=== PATIENT | female | born 1970 | race Caucasian/White ===

== ENCOUNTER → 2023-05-29 | Outpatient (CLI) | payer OTHER, SELFPAY ==
[2023-05-29 17:51] LABS: Absolute Lymphocyte Count 1.86 X10^3/uL (0.83-4.51); Absolute Neutrophil Count 3.8 X10^3/uL (2.0-7.7); Basophil# 0.07 X10^3/uL; Basophil% 1.1 % (0-1); Eosinophil# 0.08 X10^3/uL; Eosinophils% 1.3 % (0-5); Hematocrit 40.7 % (37-47); Hemoglobin 13.1 g/dL (12.0-15.0); Lymphocyte # 1.86 X10^3/ul (0.83-4.51); Lymphocyte % 29.5 % (19-41); Mean Corp Hgb Conc 32.2 g/dL (32-36); Mean Corpuscular Hgb 28.7 pg (27.0-32.0); Mean Corpuscular Volume 89.1 fL (81-99); Mean Platelet Vol. 10.8 fl (6.2-12.0); Monocyte# 0.53 X10^3/uL; Monocyte% 8.4 % (0-10); NRBC Flagged by Analyzer 0 % (0-5); Neutrophil # 3.75 X10^3/uL (2.7-7.7); Neutrophil % 59.4 % (47-70); Platelet Count 290 K/mm3 (150-450); RBC Distribution Width CV 12.5 % (11.6-14.6); RBC Distribution Width SD 40.8 fl (35.1-43.9); Red Blood Count 4.57 M/mm3 (4.2-5.4); White Blood Count 6.3 K/mm3 (4.4-11.0)
[2023-05-29 18:28] LABS: ALB/GLOB Ratio 1.2 RATIO (0.9-2.4); AST(SGOT) 14 U/L (15-37); Alanine Aminotransfer ALT/SGPT 19 U/L (13-56); Alkaline Phosphatase 53 U/L (45-117); Anion Gap 5 (5-15); BUN 15 mg/dL (7-18); BUN/Creat Ratio 18.7 RATIO (10-20); Calcium,Total 9.4 mg/dL (8.5-10.1); Chloride 108 mmol/L (98-107); EST Glomerular Filtration Rate 80 mL/min (>60); Est Glom Filt Rate - Afr Amer 96 mL/min (>60); Globulin 3.3 g/dL (2.2-4.2); Glucose 93 mg/dL (74-106); Potassium 3.7 mmol/L (3.5-5.1); Protein, Total 7.3 g/dL (6.4-8.2); Sodium Level 142 mmol/L (136-145)
== END | disposition home or self-care (01) ==
LOC: MFPLAB 15:21
PROVIDERS: PCP Family Medicine; Visit Provider Family Medicine
DX: Z01.818 Encounter for other preprocedural examination (principal)
CPT/HCPCS: 36415; 80053; 85025

== ENCOUNTER 2023-06-23 05:51 | Day surgery (SDC) | payer OTHER, SELFPAY ==
[2023-06-23 06:43] VITALS: BP 114/66; PULSE 95; RESP 16; TEMP 36.6; O2SAT 100; BMI 19.5
[2023-06-23] MEDS: Lactated Ringers 1,000 ML 15 ML IV (07:03)
--- NOTE | 2023-06-23 07:30 | BUN_PTH ---
PATIENT: ARABELLA CLEMENS [place] [facility] [place] [facility] [place][id number] AGE/SX: 53/F ROOM: RE06/23/[address]: Dr. Luis Yuen DPM : 1970 BED: DIS: 06/23/2023 SPEC #: [id number] RECD: 06/23/23 14:30 STATUS: CELESTINA RERegla #: [id number] KHADIJAH: 06/23/23 07:[address]: Luis Yuen DEPT: SURGICAL PATHOLOGY RECD BY: Jaylin Townsend ENTERED: 06/26/23 10:59 SP TYPE: BUNION OTHR DR: Reshma Reynoso DO Tissues: A - Bony tissue, NOS B - Toe, NOS Procedures: Decalcification bone/plaque Surgery Specimen Level III HEADER OPERATION: First tarsometatarsal Lapidus arthrodesis fusion bunionectomy PRE-OP DIAGNOSIS: Pain left foot, left foot bunion TISSUE SUBMITTED: A - Left bunion, B - Left hammertoe MICROSCOPIC DIAGNOSIS A. Left bunion: Pieces of bone with reactive changes, clinically bunion. B. Left hammertoe: A piece of bone with reactive changes, clinically hammertoe. MARÍA:jones 06/29/2023 MICROSCOPIC DESCRIPTION Slides are reviewed. GROSS DESCRIPTION A - Received in fixative is one container labeled with the patient's name and designated left jackie. The specimen consists of multiple irregular fragments of bone that in aggregate measure 2.0 x 1.0 x 0.5 cm. The specimen is totally submitted in one cassette after decalcification. B - Received in fixative is one container labeled with the patient's name and designated left edmar. The specimen consists of a piece of bone measuring 1.0 x 0.4 x 0.4 cm. The entire specimen is submitted in one cassette after decalcification. / MARÍA:jones 06/26/2023 TC:5 CPT: 88598 x2, 94715 x2
--- NOTE | 2023-06-23 07:31 | PCM.DC ---
Discharge Instructions Diet Discharge Diet: Light diet - advance as tolerated Activity Weight Bearing Status: No weight bearing (No weightbearing left foot) Keep extremity elevated above heart level: Left Leg (Keep left foot elevated for at least 50 minutes of every hour.) Dressing / Incision Call your doctor if your incision/area has: Continuous Slow Oozing, Sudden Increased Bleeding and Foul Smelling Discharge Call your doctor if you observe: Fever of 101 or Higher, Shortness of breath, Chest pain, Increased palpitations (irregular heartbeat), Calf discomfort and Uncontrolled pain Change Dressing in: do not change dressing Remove Dressing in: do not remove dressing Cleanse incision/area with: Do not get Incision Wet and Keep Dressing Clean & Dry Follow Up Care Please Follow Up With: Luis Yuen DPM When: 1 week in office at [facility], sooner if needed. Test Results: Test results from this visit will be discussed in further detail at your follow-up appointment, if applicable. Discharge Plan Admission Attending Provider: Luis Yuen Primary Care Provider: Reshma Reynoso Discharge Orders/Prescriptions Prescriptions: New hydrocodone-acetaminophen 5-325 mg tablet 1 - 2 tab PO Q6H 4 Days Qty: 24 0RF ibuprofen 400 mg tablet 400 mg PO Q6H Qty: 40 0RF Discontinued Advil Dual Action 125-250 mg tablet 1 tab PO Q8H PRN (Reason: pain) No Action sertraline 25 mg tablet 25 mg PO QHS melatonin 3 mg capsule 3 mg PO QHS cetirizine 10 mg tablet 10 mg PO DAILY PRN (Reason: allergy symptoms) Probiotic Acidophilus 1.5 mg (250 million cell) capsule 500 mmu cells PO DAILY Multivitamin 50 Plus Tablet 1 tab PO DAILY calcium carbonate-vitamin D2 600 mg calcium- 200 unit tablet 3 tab PO DAILY Estroven 155 mg capsule 1 cap PO DAILY Referrals / Follow Up: Reshma Reynoso DO [Primary Care Provider] - Disposition Disposition (needs filled in before D/C Order can be placed): Home, Self Care
--- NOTE | 2023-06-23 07:35 | RAD_ITS ---
STUDY: X-RAY - LEFT FOOT CLINICAL: Female, 53 years old. Intraoperative digital documentation views. TECHNIQUE: 5 intraoperative digital documentation view(s) of the foot. COMPARISON: None. FINDINGS: 5 intraoperative digital documentation views show fusion at the navicular-cuneiform and cuneiform-first metatarsal articulation with multiple cancellous screws and malleable plate and screw fixation. Cam placement through the DIP and PIP joints of the second digit with contrast projected over the head of the second metatarsal. 114 images acquired. 5 images saved. Total exposure time 4 minutes and 53 seconds. Longest single exposure 12 seconds. Total DAP 36.0886 CGycm2. Total Air Kerma 2.1481 mGy. RAD/Foot 2 Views IMPRESSION: Intraoperative digital documentation views as described. Electronically Signed: David Woodson MD at 13:52 EDT ,
[2023-06-23] MEDS: Cefazolin 2 GM in 0.9% Normal Saline 100 ML IV (07:41)
[2023-06-23] MEDS: Bupivacaine Mpf 0.5% 30 ML VIAL (08:00)
[2023-06-23 08:37] LABS: Vitamin D,25 Hydroxy 49.8 ng/mL
--- NOTE | 2023-06-23 11:52 | PCM.OPRPT ---
Report of Operation Date of Procedure: 06/23/23 Pre-Operative Diagnosis: Hallux valgus bunion left foot 2nd digit hammer toe, left foot Deformed 2nd metatarsal, left foot Torn 2nd metatarsal phalangeal joint plantar plate flexor tendons, left Post-Operative Diagnosis: Same Surgery/Procedure Performed:: 1st tarsometatarsal lapidus arthrodesis bunionectomy, left arthrodesis left 2nd toe 2nd metatarsal osteoteomy, left Repair of 2nd metatarsal phalangeal joint plantar plate flexor tendons, left Surgeon: Luis Yuen video editing intern: Type of Anesthesia: General and Local Specimen's removed: Bunion from left foot sent to pathology Bone from left 2nd digit hammer toe sent to pathology Estimated Blood Loss (mL): 20mL Description of Procedure: Indications: This is a 53 year old with chronic left foot pain despite nonsurgical treatment. Since symptoms persist despite nonsurgical care, we discussed surgical options. Reviewed the procedures, possible benefits vs risks, goals, expectations, and estimated healing time. She expressed understanding and agreement. No guarantees were given nor implied. No warranties were given. This was discussed with patient, and also her parents have been informed as well. Patient freely signed the consent forms and elected to proceed forward with the procedures. Operative procedure: She was brought back into the operating room and was placed on the operating room table in the supine position. A timeout was performed and the patient was properly identified and the surgical plan was confirmed. The patient did receive 2 g of IV Ancef for antibiotic prophylaxis. The patient received general anesthesia per the anesthesia team. A well padded pneumatic tourniquet was applied around the left ankle. A total of 15mL of 0.5% Bupivacaine plain was given as a local nerve block around the left foot 1st and 2nd rays, after the overlying skin was cleansed with 70% Isopropyl alcohol. The left foot was scrubbed, prepped and draped in the usual aseptic fashion. Further attention was directed to the left foot. There was noted to be positive dorsal drawer to the 2nd metatarsal phalangeal joint. The 2nd toe was contracted and was a hammer toe. The 1st toe was laterally deviated and there was significant hallux valgus bunion with hypermobility. The left foot was exsanguinated via elevation for several minutes and the left ankle pneumatic tourniquet was inflated to 250mmHg. Left 1st tarsometatarsal lapidus bunionectomy: A linear longitudinal skin incision was medially along the medial 1st metatarsal cuneiform joint as well as overlying the 1st metatarsal phalangeal joint. This was done using a 15 blade. Careful dissection was completed down to the capsule of the 1st metatarsal cuneiform joint, and it was incised using a 15 blade and partially reflected exposing the joint surfaces. All cartilage from the 1st metatarsal cuneiform joint surfaces (posterior aspect of the base of the 1st metatarsal and the anterior aspect of the medial cuneiform) were debrided away and was removed down to bleeding bone. This was done with a curette as well as a powered rasp, being sure not to cause osteonecrosis. The site was flushed out with copious amounts of normal saline solution. The surfaces were fenestrated using a powered drill to aid fusion. The 1st metatarsal was reduced into normal position. The site was fixated use rigid open reduction internal fixation, using 1 Arthrex plantar plate, using a total of 3 locking screws, 1 cortical screw, and 1 nonlocking compression screw across the fusion site. Two additional 4.0mm FT Arthrex partially threaded screws were first placed across the fusion site for fixation, this was also done using rigid open reduction internal fixation technique. There was noted to be intercuneiform instability so some of the screws wre placed from the 1st cuneiform to the middle cuneiform using rigid open reduction internal fixation technique. There was very good compression and bone to bone contract with the prepped fusion site, in good alignment. The fusion site was rigid and very stable. This was checked and confirmed with intraoperative fluoroscopy. There was noted to be a residual medial to the 1st metatarsal head. Careful dissection was completed down to the 1st metatarsal phalangeal joint capsule and it was incised, it was partially reflected. The medial eminence was resected using a powered sagittal saw removing the nonviable cartilage from these sites in process, the resected bone was sent to pathology. Also, there was noted to be significant contracture of the lateral 1st metatarsal phalangeal joint as well as the adductor hallucis tendon which was preventing proper reduction of the deformity and sesamoids. Therefore a small skin incision was overlying the dorsal lateral 1st metatarsal phalangeal joint. Dissection was completed down to the lateral capsule and adductor hallucis tendon which were released using a 15 blade. There was was now normal range of motion to the 1st metatarsal phalangeal joint. There was smooth normal gliding range of motion of the 1st metatarsal phalangeal joint at this time with normal alignment. The joint was in good alignment. The surgical site was flushed out with copious amounts of normal saline solution. Tissues were healthy and viable at this time. The subcutaneous tissue layers were reapproximated using?2-0 vicryl, 3-0 Vicryl and the skin was reapproximated using 4-0 Monocryl. Left 2nd metatarsal osteotomy: A curvilinear skin incision was made overlying the dorsal 2nd metatarsal phalangeal joint using a 15 scalpel blade. Careful dissection was completed down through the subcutaneous tissue layer. The extensor tendons were identified and were retracted safely out of the way. The dorsal 2nd metatarsal phalangeal joint capsule was incised with a 15 blade. The metatarsal head was visualized. There was noted to be significant adhesions to the plantar aspect of the joint at the level of the plantar plate, with lateral plantar plate tear. The 2nd metatarsal was deformed being long, but otherwise the joint did appear to be healthy and viable. A chetan osteotomy was completed through the distal 2nd metatarsal using a powered sagittal saw, being sure to make the osteotomy parallel to the weightbearing surface. The 2nd metatarsal head was gently placed in a more proximal position and the osteotomy site was fixated using two Arthrex snap off screws using rigid open reduction internal fixation technique. There was excellent stability and fixation to the osteotomy site. Intraoperative fluoroscopy was used to confirmed proper positioning and fixation. The site was flushed out with copious amounts of normal saline solution. The joint capsule was reapproximated using 2-0 Vicryl. The subcutaneous tissue was reapproximated using 3-0 Vicryl and the skin was reapproximated using 4-0 Monocryl. Left 2nd metatarsal osteotomy: A curvilinear skin incision was made overlying the dorsal 2nd metatarsal phalangeal joint using a 15 scalpel blade. Careful dissection was completed down through the subcutaneous tissue layer. The extensor tendons were identified and were retracted safely out of the way. The dorsal 2nd metatarsal phalangeal joint capsule was incised with a 15 blade. The metatarsal head was visualized. There was noted to be significant adhesions to the plantar aspect of the joint at the level of the plantar plate, with plantar plate tear. The 2nd metatarsal was deformed being long, but otherwise the joint did appear viable. A chetan osteotomy was completed through the distal 2nd metatarsal using a powered sagittal saw, being sure to make the osteotomy parallel to the weightbearing surface. The 2nd metatarsal head was gently placed in a more proximal position, being sure to maintain the normal parabola of the metatarsal head, and the osteotomy site was fixated using two Arthrex snap off screws using rigid open reduction internal fixation technique. There was excellent stability and fixation to the osteotomy site. Intraoperative fluoroscopy was used to confirmed proper positioning and fixation. The site was flushed out with copious amounts of normal saline solution. The joint capsule was reapproximated using 3-0 Vicryl. The subcutaneous tissue was reapproximated using 3-0 Vicryl and the skin was reapproximated using 4-0 Monocryl. Left 2nd metatarsal phalangeal joint plantar plate repair: A linear skin incision was made overlying the plantar 2nd metatarsal phalangeal joint using a 15 scalpel blade. Careful dissection was completed down through the subcutaneous tissue layer. The flexor tendon sheath was identified, there were some adhesions noted. The sheath was incised carefully being sure not to incision the tendons, and the adhesions of the flexor tendons were released (tenolysis). Otherwise the flexor tendons appeared healthy and viable, and they were retracted safely out of the way. The plantar plate was visualized and there was noted to be thickening, there was noted to be a tear of the lateral plantar plate. There was instability of the plantar plate when stressing it. The plantar plate edges were debrided and the plantar plate was repaired using 2-0 FiberWire via a pants over vest suturing technique. This was repair holding the 2nd toe in a slight plantarflexed position. At this time there was noted to be negative dorsal drawer test, and now there was excellent stability present to the plantar plate. Alignment of the joint was anatomic, and position of the 2nd toe was rectus in all planes when loading the foot. The site was flushed out with copious amounts of normal saline solution. The joint capsule was reapproximated using 3-0 Vicryl. The subcutaneous tissue was reapproximated using 3-0 Vicryl and the skin was reapproximated using 3-0 Nylon. Left 2nd toe arthrodesis: Attention was directed to the toe. A dorsal linear longitudinal incision was made over the proximal interphalangeal joint (PIPJ) of the toe. An incision was made transversely to the extensor digitorum longus tendon at the level of the dorsal PIPJ, this was done with a 15 blade. The dorsal PIPJ joint capsule was incised with a 15 blade. The cartilage from the head of the proximal phalanx was resected using a powered sagittal saw, and cartilage from the base of the middle phalanx was resected using a sagittal saw. The site was flushed out with copious amounts of normal saline solution. A 0.062in kwire was placed through the phalanges of the toe holding the toe in rectus position. This was confirmed with intra operative fluoroscopy. The site was again flushed out with copious amounts of normal saline solution. The extensor digitorum longus tendon was reapproximated using 3-0 Vicryl. The skin was reapproximated using 4-0 Monocryl. The pneumatic tourniquet was deflated (total tourniquet time was 161 minutes, of note it was deflated at 120 minutes, and was deflated for 19 minutes, then reinflated for the rest of the time (41 minutes) after being elevated for exsanguination). There was immediate return of warmth and perfusion to the foot, including to all 5 toes. CFT < 2 seconds to all toes after deflating the tourniquet both times. A dressing was applied which consisted of cavilon to incision sites and steristrips, then Betadine soaked adaptic, 4x4 gauze, Kerlix and willie bandage. Also a pin cap was placed to the end of the kwire. Of note all vital structures, including all vital neurovascular structures were properly identified, they were protected and retracted as necessary throughout the above procedures. Hemostasis was achieved prior to dressing application. The patient tolerated the above procedure well and the anesthesia well with no complications. The patient was transported from the operating room to the recovery room with vital signs stable and in good condition. Post operative orders were placed, post operative instructions were reviewed with the patient and here parents pre operatively (today and pre op visit in office) - no weightbearing left foot, keep left foot elevated for at least 50 minutes of every hour, keep dressing clean, dry and intact, follow up with me within 1 week in office - sooner if needed. This was typed out and these written instructions were also reviewed with patient and given to patient to take home. [place] 5/325mg PO 1-2 tabs q 6 hours, and also can take Ibuprofen 400mg PO q 6 hours to help with post op pain control. This was discussed with patient as well. OARRS was checked prior to prescribing. A surgical shoe was also fitted and dispensed for her for left foot to help keep the foot protected. Grafts/Implants Used: Arthrex lapidus plantar plate, screws, kwire, fiberwire, allograft bone Complications None
[2023-06-23 11:57] VITALS: BP 114/66; BP 123/65; PULSE 118; RESP 16; TEMP 37.1; O2SAT 97
[2023-06-23 12:00] VITALS: BP 114/66; BP 123/67; PULSE 115; RESP 16; O2SAT 97
[2023-06-23 12:14] VITALS: BP 114/66; BP 118/66; PULSE 114; RESP 16; O2SAT 98
--- NOTE | 2023-06-23 12:15 | RAD_ITS ---
STUDY: X-RAY - LEFT FOOT CLINICAL: Female, 53 years old. Postoperative evaluation. TECHNIQUE: 3 view(s) of the foot. COMPARISON: Intraoperative images. FINDINGS: Stable wire placement through the PIP and DIP joints of the second digit. Stable cancellous screws projected over the head of the second metatarsal. Fusion of the first TMT joint with malleable plate and screw fixation and cancellus screws, unchanged from intraoperative appearance. No complications. Diffuse mild soft tissue swelling. RAD/Foot min 3 Views IMPRESSION: Postoperative appearance of ORIF of the foot. No complications. Electronically Signed: David Woodson MD at 14:39 EDT ,
[2023-06-23 12:27] VITALS: BP 114/66; BP 119/58; PULSE 115; RESP 16; TEMP 37; O2SAT 98
[2023-06-23 13:35] VITALS: BP 110/52; BP 114/66; PULSE 111; RESP 16; TEMP 36.6; O2SAT 99
== END 2023-06-23 13:36 | disposition home or self-care (01) ==
LOC: SDC 05:54 → AC 05:55
PROVIDERS: PCP Family Medicine; Referring Provider Podiatrist; Visit Provider Podiatrist
PROC: (CPT 28292; principal; 2023-06-23 07:15)
DX: M21.612 Bunion of left foot (principal); M20.42 Other hammer toe(s) (acquired), left foot; F41.9 Anxiety disorder, unspecified; F32.A Depression, unspecified; Z79.899 Other long term (current) drug therapy
CPT/HCPCS: 28297; 28285; 01480; 73620; 73630; 76000; 82306; 88304; 88305; 88311; C1713; J7120; J2405

== ENCOUNTER → 2024-03-18 | Outpatient (CLI) | payer OTHER, SELFPAY ==
--- NOTE | 2024-03-18 17:22 | RAD_ITS ---
STUDY: X-RAY - LEFT RADIUS AND ULNA REASON FOR EXAM: Female, 54 years old. pain TECHNIQUE: 2 view(s) of the forearm. COMPARISON: None. FINDINGS: There is no demonstrated soft tissue swelling. Normal visualized radius. Normal visualized ulna. RAD/Forearm 2 Views IMPRESSION: Normal x-ray examination of the radius and ulna. Electronically Signed: Smith Alexandra MD at 21:36 EDT ,
--- NOTE | 2024-03-18 17:22 | RAD_ITS ---
STUDY: X-RAY - RIGHT KNEE REASON FOR EXAM: Female, 54 years old. pain TECHNIQUE: 4 view(s) of the knee. COMPARISON: None. FINDINGS: Normal visualized distal femur. Normal visualized proximal tibia and fibula. Normal proximal tibiofibular articulation. Normal medial femorotibial compartment. Normal lateral femorotibial compartment. Normal patellofemoral articulation. There is a soft tissue prominence in the suprapatellar region suggesting a small volume joint effusion. The soft tissue structures are unremarkable. RAD/Knee 4 or More Views IMPRESSION: Effusion, as described above. MRI may be useful. Electronically Signed: Smith Alexandra MD at 21:35 EDT ,
== END | disposition home or self-care (01) ==
PROVIDERS: PCP Family Medicine; Referring Provider Family Medicine; Visit Provider Family Medicine
DX: S89.91XA Unspecified injury of right lower leg, initial encounter (principal); S59.912A Unspecified injury of left forearm, initial encounter; W19.XXXA Unspecified fall, initial encounter
CPT/HCPCS: 73090; 73564

== ENCOUNTER → 2024-08-16 | Outpatient (CLI) | payer MEDICARE, SELFPAY ==
[2024-08-16 11:42] LABS: Anion Gap 4 (5-15); BUN 16 mg/dL (7-18); BUN/Creat Ratio 19.6 RATIO (10-20); Calcium,Total 9.1 mg/dL (8.5-10.1); Chloride 110 mmol/L (98-107); Cholesterol 243 mg/dL (200); Creatinine, Serum 0.82 mg/dL (0.55-1.02); EST Glomerular Filtration Rate 78 mL/min (>60); Est Glom Filt Rate - Afr Amer 94 mL/min (>60); Glucose 100 mg/dL (74-106); High Density Lipoprotein 76 mg/dL; Potassium 3.9 mmol/L (3.5-5.1); Sodium Level 140 mmol/L (136-145); Triglycerides 73 mg/dL; Very Low Density Lipoprotein 15 mg/dL (5-40)
== END | disposition home or self-care (01) ==
PROVIDERS: PCP Family Medicine; Visit Provider Family Medicine
DX: Z00.00 Encounter for general adult medical examination without abnormal findings (principal)
CPT/HCPCS: 36415; 80048; 80061

== ENCOUNTER → 2024-09-10 | Outpatient (CLI) | payer MEDICARE, SELFPAY ==
[2024-09-10 12:27] LABS: Hematocrit 40.4 % (37-47); Hemoglobin 13.7 g/dL (12.0-15.0); Mean Corp Hgb Conc 33.9 g/dL (32-36); Mean Corpuscular Hgb 29.3 pg (27.0-32.0); Mean Corpuscular Volume 86.5 fL (81-99); Mean Platelet Vol. 10.5 fl (6.2-12.0); Platelet Count 304 K/mm3 (150-450); RBC Distribution Width CV 12.3 % (11.6-14.6); RBC Distribution Width SD 38.9 fl (35.1-43.9); Red Blood Count 4.67 M/mm3 (4.2-5.4)
[2024-09-10 13:31] LABS: AST(SGOT) 10 U/L (15-37); Alanine Aminotransfer ALT/SGPT 21 U/L (13-56); Albumin, Serum 3.9 g/dL (3.2-5.0); Alkaline Phosphatase 60 U/L (45-117); Bilirubin, Direct 0.11 mg/dL (0.00-0.30); Globulin 3.7 g/dL (2.2-4.2); Protein, Total 7.6 g/dL (6.4-8.2); Thyroid Stim Hormone (TSH) 0.448 uIU/mL (0.358-3.740)
[2024-09-10 13:47] LABS: Vitamin B12 563 pg/mL (211-911)
[2024-09-14 16:09] LABS: Vitamin B1, Thiamine 91.4 nmol/L (66.5-200.0)
== END | disposition home or self-care (01) ==
LOC: MTLAB 10:25
PROVIDERS: PCP Family Medicine; Referring Provider Psychiatry & Neurology Neurology; Visit Provider Psychiatry & Neurology Neurology
DX: F70 Mild intellectual disabilities (principal); G40.909 Epilepsy, unspecified, not intractable, without status epilepticus; E78.5 Hyperlipidemia, unspecified
CPT/HCPCS: 36415; 80076; 82607; 82746; 84425; 84443; 85027

== ENCOUNTER → 2024-10-01 | Outpatient (CLI) | payer MEDICARE, OTHER, SELFPAY ==
--- NOTE | 2024-10-01 12:28 | BI_ITS ---
MAMMOGRAPHY - BILATERAL SCREENING REASON FOR EXAM: Female, 54 years old. Routine annual screening examination. PERTINENT HISTORY: Grandmother with breast cancer. TECHNIQUE: Digital bilateral breast christopher (3D mammographic acquisition) in the CC and MLO projections. 2-D mediolateral oblique (MLO) and craniocaudad (CC) views of both breasts were obtained. CAD: Full Field Digital Mammography with Computer Added Detection was performed. COMPARISON: Comparison is made with prior outside examination dated October 06, 2022. FINDINGS: Breast Composition: The breasts are extremely dense, which lowers the sensitivity of mammography. There are no dominant masses or suspicious calcifications. No other significant abnormalities are identified. There has been no significant change since the prior study. BI/SCREENING MAMM (CAD), BILAT IMPRESSION: Stable bilateral screening mammogram. Yearly follow-up mammogram recommended. (A) ASSESSMENT CATEGORY: BIRADS Category 1: Negative. A letter regarding these results will be sent to the patient by the facility within 30 days. Approximately 10% of breast cancers are not detected by mammography. A normal mammogram should not delay biopsy of a clinically suspicious abnormality. [id number] Electronically Signed: Joel Harmon MD at 9:14 EST ,
--- NOTE | 2024-10-01 12:32 | BD_ITS ---
STUDY: DUAL ENERGY X-RAY ABSORPTIOMETRY / DXA REASON FOR EXAM: Female, 54 years old. [id number] TECHNIQUE: Bone Mineral Density (BMD) measurements of lumbar spine and bilateral hips were obtained. COMPARISON: None. FINDINGS: Lumbar Spine (L1-L4): g/cm2 (0.967) / T-score (-0.5) / Z-score (0.5) Findings are suggestive of normal bone density with a low fracture risk. Left Femur Total: g/cm2 (0.776) / T-score (-1.4) / Z-score (-0.7) Left Femoral Neck: g/cm2 (0.639) / T-score (-1.9) / Z-score (-0.9) Right Femur Total: g/cm2 (0.737) / T-score (-1.7) / Z-score (-1.1) Right Femoral Neck: g/cm2 (0.647) / T-score (-1.8) / Z-score (-0.8) BD/Dexa Bone Density Study IMPRESSION: The patient is considered osteopenic as outlined below according to World Demetris Organization (WHO) criteria with a moderate fracture risk. Reference Information: The T-score is the number of standard deviations above or below the standard which is normal for young adults at their peak bone mineral density. The World Health Organization (WHO) interprets the T-scores as follows: Above -1 Normal bone density Between -1 and -2.5 Osteopenia Equal to / or below -2.5 Osteoporosis As a practical clinical guideline, osteopenia may be graded as follows: Mild -1 through -1.5 Moderate -1.6 through -2.0 Severe -2.1 through -2.4 The Z-score is the number of standard deviations above or below age-matched controls. A Z-score of less than -1.5 would be considered abnormal. References: 1. NIH Osteoporosis and Related Bone Diseases www osteo.org 2. International Society for Clinical Densitometry www iscd.org 3. National Osteoporosis Foundation www nof.org Electronically Signed: Joel Harmon MD at 14:18 EST ,
== END | disposition home or self-care (01) ==
LOC: OPBD 12:26
PROVIDERS: PCP Family Medicine; Referring Provider Family Medicine; Visit Provider Family Medicine
DX: Z12.31 Encounter for screening mammogram for malignant neoplasm of breast (principal); Z78.0 Asymptomatic menopausal state
CPT/HCPCS: 77067; 77080

== ENCOUNTER → 2024-10-03 | Outpatient (CLI) | payer MEDICARE, SELFPAY | END | disposition home or self-care (01) | PROVIDERS: PCP Family Medicine; Referring Provider Psychiatry & Neurology Neurology; Visit Provider Psychiatry & Neurology Neurology | DX: G40.909 Epilepsy, unspecified, not intractable, without status epilepticus (principal); F71 Moderate intellectual disabilities | CPT/HCPCS: 95819 ==

== ENCOUNTER → 2024-10-16 | Outpatient (CLI) | payer MEDICARE, SELFPAY ==
--- NOTE | 2024-10-16 08:04 | MRI_ITS ---
STUDY: MRI BRAIN WITH AND WITHOUT CONTRAST REASON FOR EXAM: Female, 54 years old. developmental intellectual impairment; epilepsy TECHNIQUE: Standardized multiplanar fat and water weighted pulse sequences were obtained. IV 9ml clariscan was administered for the contrast portion of the examination. COMPARISON: None. FINDINGS: Normal size of the ventricles and extra-axial spaces for the patient''s age. Normal white matter tracts of the supratentorial brain. Normal bilateral basal ganglia. Normal thalami. There is no extra-axial fluid accumulation. Normal flow voids within the major intracranial circulation suggesting patency by spin echo criteria. Normal venous enhancement. There is no enhancing intra-axial or extra-axial abnormality. Normal sella turcica, pituitary gland, infundibular stalk, optic chiasm and hypothalamus. Normal tectal plate and pineal gland. Normal midbrain, malinda and medulla. Normal cerebellum. Normal basal cisterns. Normal bilateral temporal bones. Normal bilateral internal auditory canals. No demonstrated orbital abnormality, within the constraints of a routine brain study. Normal visualized paranasal sinuses. Normal calvarium and skull base. Normal visualized soft tissue structures. Normal visualized upper cervical spine. MRI/Brain W/WO Contrast IMPRESSION: Normal unenhanced and enhanced MRI of the brain. Electronically Signed: Luis Sagastume MD at 21:29 EST ,
== END | disposition home or self-care (01) ==
PROVIDERS: PCP Family Medicine; Referring Provider Psychiatry & Neurology Neurology; Visit Provider Psychiatry & Neurology Neurology
DX: G40.909 Epilepsy, unspecified, not intractable, without status epilepticus (principal); F70 Mild intellectual disabilities
CPT/HCPCS: 70553; A9575

== ENCOUNTER → 2024-12-13 | Outpatient (CLI) | payer MEDICARE, SELFPAY ==
[2024-12-13 11:02] LABS: AST(SGOT) 17 U/L (15-37); Alanine Aminotransfer ALT/SGPT 18 U/L (13-56); Albumin, Serum 3.7 g/dL (3.2-5.0); Alkaline Phosphatase 73 U/L (45-117); Anion Gap 6 (5-15); BUN 11 mg/dL (7-18); BUN/Creat Ratio 13.5 RATIO (10-20); Chloride 107 mmol/L (98-107); Cholesterol 163 mg/dL (200); Creatinine, Serum 0.82 mg/dL (0.55-1.02); EST Glomerular Filtration Rate 78 mL/min (>60); Est Glom Filt Rate - Afr Amer 94 mL/min (>60); Globulin 3.6 g/dL (2.2-4.2); Glucose 93 mg/dL (74-106); High Density Lipoprotein 79 mg/dL; Potassium 3.9 mmol/L (3.5-5.1); Protein, Total 7.3 g/dL (6.4-8.2); Sodium Level 141 mmol/L (136-145); Triglycerides 74 mg/dL; Very Low Density Lipoprotein 15 mg/dL (5-40)
== END | disposition home or self-care (01) ==
LOC: MFPLAB 09:07
PROVIDERS: PCP Family Medicine; Referring Provider Family Medicine; Visit Provider Family Medicine
DX: E78.5 Hyperlipidemia, unspecified (principal)
CPT/HCPCS: 36415; 80053; 80061